=== PATIENT | female | born 1975 | race Caucasian/White ===

== ENCOUNTER 2016-07-08 17:22 | Emergency (ER) | payer OTHER, MEDICAID ==
[~2016-07-08] VITALS: Ht 172.7 cm; Wt 86.0 kg
[~2016-07-08 17:22] MED LIST: ADDE20XR PO; ATEN-100 PO; DILA2TAB2; PYRI200T4 PO; STOO100C PO
[2016-07-08 17:24] VITALS: BP 149/83; PULSE 110; RESP 16; TEMP 98.6; O2SAT 97
[2016-07-08] MEDS ORDERED: SODIUM CHLOR 0.9% 1000 ML INJ 1,000 ML IV ONE (17:40)
[2016-07-08] MEDS ORDERED: HYDROmorphone HCL PF 1 MG/ML VIAL IVS ONE (17:45)
[2016-07-08] MEDS ORDERED: KETOROLAC TROMETHAMINE 30 MG/ML (IVP) VIAL IVP ONE (17:45)
[2016-07-08] MEDS ORDERED: ONDANSETRON HCL 4 MG/2 ML VIAL IVP ONE (17:45)
[2016-07-08] MEDS ORDERED: ADDE20XR PO (17:51)
[2016-07-08 18:15] VITALS: BP 146/81; PULSE 80; RESP 17; O2SAT 98
[2016-07-08 18:34] LABS: AUTOMATED NEUTROPHIL # 7.5 TH/MM3 (1.8-7.7); BASOPHIL # 0.1 TH/MM3 (0-0.2); BASOPHIL % 0.6 % (0.0-2.0); EOSINOPHIL # 0.3 TH/MM3 (0-0.4); EOSINOPHIL % 2.9 % (0.0-4.0); HEMATOCRIT 39.8 % (35.0-46.0); HEMO FLAGS DIFF FINAL; LYMPH % 24.6 % (9.0-44.0); LYMPHOCYTE # 2.9 TH/MM3 (1.0-4.8); MEAN CELL VOLUME 83.5 FL (80.0-100.0); MEAN CORPUSCULAR HEMOGLOBIN 27.8 PG (27.0-34.0); MEAN CORPUSCULAR HGB CONC 33.3 % (32.0-36.0); NEUT % 63.9 % (16.0-70.0); PLATELET COUNT 340 TH/MM3 (150-450); RED BLOOD COUNT 4.77 MIL/MM3 (4.00-5.30); RED CELL DISTRIBUTION WIDTH 13.5 % (11.6-17.2); WHITE BLOOD COUNT 11.7 TH/MM3 (4.0-11.0)
[2016-07-08 18:36] LABS: BACTERIA, URINE RARE /hpf; BLOOD, URINE MOD (NEG); COMMENT (UR) CULTURE INDICATED; CULTURE IF INDICATED CULTURE INDICATED; GLUCOSE,URINE NEG (NEG); KETONE, URINE NEG (NEG); MUCUS URINE FEW /lpf (OCC); NITRITE,URINE NEG (NEG); SQUAMOUS EPITHELIAL CELL URINE <1 /hpf (0-5); URINE COLOR YELLOW (YELLW/STRAW)
[2016-07-08 18:55] LABS: BICARBONATE 27.8 MEQ/L (21.0-32.0); MAGNESIUM 2.1 MG/DL (1.5-2.5); POTASSIUM 4.3 MEQ/L (3.5-5.1)
--- NOTE | 2016-07-08 19:07 | RADRPT ---
EXAM DATE/TIME: 07/08/2016 18:42 [facility] COMPARISON: UROGRAM, RETROGRADE PYELO, November 20, 2014, 17:13. ABDOMEN KUB ONLY, November 20, 2014, 14:00. CT ABDOMEN & PELVIS W/O CONTRAST, August 05, 2013, 17:31. INDICATIONS : Evaluate for renal calculi. ORAL CONTRAST: No oral contrast ingested. RADIATION DOSE: 9.52 CTDIvol (mGy) MEDICAL HISTORY : Renal calculi. SURGICAL HISTORY : Cholecystectomy. Tubal ligation.Lithotripsy and left stent. ENCOUNTER: Initial ACUITY: 1 yr PAIN SCALE: 5/10 LOCATION: flank TECHNIQUE: Volumetric scanning of the abdomen and pelvis was performed. Using automated exposure control and ad justment of the mA and/or kV according to patient size, radiation dose was kept as low as reasonably achievable to obtain optimal diagnostic quality images. FINDINGS: The heart is minimally enlarged. The lung bases are clear. The liver is free of focal defects. Stef gical clips are seen in the gallbladder fossa. There is mild prominence to the spleen. The pancreas is unremarkable. The right adrenal gland appears normal. There is a small low density lesion in the left adrenal gland measuring approximately 1.6 cm. This i s probably an adenoma. Double J stent is in place on the left with a large 1.7 cm stone in the lower pole of the left kidney . There are no calcifications along the stent. The uterus is mildly prominent. The stent is coiled in the bladder. The abdominal wall is intact. There is no ascites or adenopathy. CONCLUSION: Double J stent on the left with stone in the lower pole of the kidney unchanged from the comparison pushpa saleem. Houston Noriega MD FACR on July 08, 2016 at 18:59 Board Certified Radiologist. This report was verified electronically.
[2016-07-08 19:13] VITALS: BP 141/79; PULSE 79; RESP 15; O2SAT 97
--- NOTE | 2016-07-08 19:14 | PD ---
HPI Chief Complaint: Complaint Time Seen by Provider: 19:06 Travel History International Travel<30 days: No Contact w/Intl Traveler<30days: No Traveled to known affect area: No History of Present Illness HPI 41-year-old female that presents to the ED for evaluation of pain on her left side. Per patient she relates she has a kidney stone. Per patient she has this pain for almost a year. Per patient she had a stent placed on the left side by Dr. Polanco at this facility. Per patient she's been dealing with this pain on and off but today has become more severe. Per patient she usually goes to perforation at that hospital she was told that she had about stone that she require surgery for. Apparently they cannot do that surgery at that hospital so she was told that if she ever gets this again patient is to come back here. Per patient the pain is 7 out of 10. Does not radiate. States mainly on the left side. She denies any fevers chills or sweats. No urinary issues. She has not seen her doctor and she does tell me that she follows with Dr. Polanco. No chest pain or shortness of breath. No headache. She chronically takes Advil and Tylenol with minimal relief. PFSH Past Medical History ADD: Yes Diminished Hearing: No Kidney Stones: Yes Psychiatric: Yes (ADHD ) Tetanus Vaccination: > 5 Years Influenza Vaccination: Yes ?: Unknown LMP: 07/08/16 : 4 Para: 3 Miscarriage: 1 Tubal Ligation: Yes Past Surgical History Abdominal Surgery: Yes (GALLBLADDER. LITHOTRIPS AND STENTS ) Cholecystectomy: Yes Genitourinary Surgery: Yes (LITHOTRIPSY AND STENTS) Gynecologic Surgery: Yes (TUBEL LIGATION ) Joint Replacement: No Pacemaker: No Other Surgery: Yes Social History Alcohol Use: Yes (OCCASIONAL) Tobacco Use: No Substance Use: No Allergies-Medications (Allergen,Severity, Reaction): Coded Allergies: Latex (Verified Allergy, Intermediate, HIVES, 07/08/16) Percocet (Verified Adverse Reaction, Intermediate, Nausea/Vomiting, ) Reported Meds & Prescriptions Reported Meds & Active Scripts Active Cipro (Ciprofloxacin HCl) 500 Mg Tab 500 Mg PO BID 10 Days Reported Adderall Xr 24 HR (Amphetamine/Dextroamphetamine) 20 Mg Cap 20 Mg PO DAILY Once daily in the morning. Review of Systems Except as stated in HPI: all other systems reviewed are Neg Physical Exam Narrative GENERAL: SKIN: Warm and dry. HEAD: Atraumatic. Normocephalic. EYES: Pupils equal and round. No scleral icterus. No injection or drainage. ENT: No nasal bleeding or discharge. Mucous membranes pink and moist. NECK: Trachea midline. No JVD. CARDIOVASCULAR: Regular rate and rhythm. RESPIRATORY: No accessory muscle use. Clear to auscultation. Breath sounds equal bilaterally. GASTROINTESTINAL: Abdomen soft, non-tender, nondistended. Hepatic and splenic margins not palpable. MUSCULOSKELETAL: Extremities without clubbing, cyanosis, or edema. No obvious deformities. Patient has left-sided CVA tenderness. Very sensitive to touch. NEUROLOGICAL: Awake and alert. No obvious cranial nerve deficits. Motor grossly within normal limits. Five out of 5 muscle strength in the arms and legs. Normal speech. PSYCHIATRIC: Appropriate mood and affect; insight and judgment normal. Data Data Last Documented VS Vital Signs Date Time Temp Pulse Resp B/P Pulse Ox O2 Delivery O2 Flow Rate FiO2 07/08/16 19:13 79 15 141/79 97 Room Air 07/08/16 17:24 98.6 Orders Complete Blood Count With Diff (07/08/16 17:35) Basic Metabolic Panel (Bmp) (07/08/16 17:35) Urinalysis - C+S If Indicated (07/08/16 17:35) Magnesium (Mg) (07/08/16 17:35) Iv Access Insert/Monitor (07/08/16 17:35) Ed Urine Pregnancytest Poc (07/08/16 17:35) Ct Abd/Pel W/O Iv Contrast (07/08/16 17:37) Ecg Monitoring (07/08/16 17:40) Ketorolac Inj (Toradol Inj) (07/08/16 17:45) Ondansetron Inj (Zofran Inj) (07/08/16 17:45) Sodium Chlor 0.9% 1000 Ml Inj (Ns 1000 M (07/08/16 17:40) Hydromorphone Pf Inj (Dilaudid Pf Inj) (07/08/16 17:45) Urine Culture (07/08/16 18:00) Ciprofloxacin 400 Mg Premix (Cipro 400 M (07/08/16 19:15) Labs Laboratory Tests Test 07/08/16 18:00 White Blood Count 11.7 TH/MM3 Red Blood Count 4.77 MIL/MM3 Hemoglobin 13.3 GM/DL Hematocrit 39.8 % Mean Corpuscular Volume 83.5 FL Mean Corpuscular Hemoglobin 27.8 PG Mean Corpuscular Hemoglobin 33.3 % Concent Red Cell Distribution Width 13.5 % Platelet Count 340 TH/MM3 Mean Platelet Volume 9.4 FL Neutrophils (%) (Auto) 63.9 % Lymphocytes (%) (Auto) 24.6 % Monocytes (%) (Auto) 8.0 % Eosinophils (%) (Auto) 2.9 % Basophils (%) (Auto) 0.6 % Neutrophils # (Auto) 7.5 TH/MM3 Lymphocytes # (Auto) 2.9 TH/MM3 Monocytes # (Auto) 0.9 TH/MM3 Eosinophils # (Auto) 0.3 TH/MM3 Basophils # (Auto) 0.1 TH/MM3 CBC Comment DIFF FINAL Differential Comment Urine Color YELLOW Urine Turbidity HAZY Urine pH 6.0 Urine Specific [place] 1.024 Urine Protein 100 mg/dL Urine Glucose (UA) NEG mg/dL Urine Ketones NEG mg/dL Urine Occult Blood MOD Urine Nitrite NEG Urine Bilirubin NEG Urine Urobilinogen LESS THAN 2.0 MG/DL Urine Leukocyte Esterase MOD Urine RBC /hpf Urine WBC 68 /hpf Urine Squamous Epithelial <1 /hpf Cells Urine Bacteria RARE /hpf Urine Mucus FEW /lpf Microscopic Urinalysis Comment CULTURE INDICATED Sodium Level 140 MEQ/L Potassium Level 4.3 MEQ/L Chloride Level 105 MEQ/L Carbon Dioxide Level 27.8 MEQ/L Anion Gap 7 MEQ/L Blood Urea Nitrogen 22 MG/DL Creatinine 0.86 MG/DL Estimat Glomerular Filtration 73 ML/MIN Rate Random Glucose 88 MG/DL Calcium Level 9.3 MG/DL Magnesium Level 2.1 MG/DL MDM Medical Decision Making Medical Screen Exam Complete: Yes Emergency Medical Condition: Yes Medical Record Reviewed: Yes Interpretation(s) CBC & BMP Diagram 07/08/16 18:00 CT of the abdomen and pelvis showed 1.7 centimeter kidney stone on the left kidney with no obstruction. Patient does have a just in the left ureter. Urine shows signs of UTI. Differential Diagnosis Pyelonephritis versus kidney stone versus chronic pain versus acute on chronic pain Narrative Course 41-year-old female that presents to the ED for evaluation of possible kidney stone. Patient was properly examined and was found to have signs and symptoms consistent appears to be likely kidney stone versus pyonephritis. Labs and imaging ordered. Patient was given pain medication. Labs and imaging showed UTI as well as kidney stone but no sign of ureteral stone. Staying still in place. No sign of hydronephrosis. Case was discussed in my attending Dr. Kauffman who recommends antibiotics and follow-up outpatient. I spoke with Dr. Escobar as the patient is very aminent that she needs the J-tube removed that has been there too long and she is having severe pain because of it. He recommends that patient be discharged and follow with him on the office tomorrow for removal of the stent. Patient was given a prescription for Cipro. Told to follow with PCP. See ED worsening symptoms. Diagnosis Primary Impression: Renal colic on left side Additional Impression: Cystitis Referrals: Gold Escobar MD Patient Instructions: General Instructions, Narcotic given in the ED Additional Instructions: Follow-up with Dr. Escobar tomorrow and he will remove the stent for you. Take meds as prescribed. F/u with urologist. See ED if worsening symptoms. Med/Other Pt SpecificInfo: Prescription(s) given Scripts Ciprofloxacin (Cipro)500 Mg [id number] Mg PO BID 10 Days Prov:Marisela Kauffman MD 07/08/16 Disposition: 01 DISCHARGE HOME Condition: Stable Garland Seay Jul 08, 2016 19:10
[2016-07-08] MEDS ORDERED: CIPROFLOXACIN 400 MG PREMIX 200 ML IV ONE (19:15)
[2016-07-08] MEDS ORDERED: CIPR-9 PO (19:25)
[2016-07-08 20:16] VITALS: BP 140/80
== END 2016-07-08 20:42 | disposition home or self-care (01) ==
LOC: NEPE 17:22
DX: N23 Unspecified renal colic (principal); N30.90 Cystitis, unspecified without hematuria
CPT/HCPCS: 74176; 80048; 81001; 83735; 84703; 85025; 87086; 96361; 96365; 96375; 99284; J0744; J1170; J1885; J2405; J7030

== ENCOUNTER 2016-07-09 14:48 | Observation (INO) | payer OTHER, MEDICAID ==
[~2016-07-09] VITALS: Ht 172.7 cm; Wt 88.0 kg
[~2016-07-09 14:48] MED LIST changes: -ATEN-100 PO; +CIPR-9 PO; -DILA2TAB2; -PYRI200T4 PO; -STOO100C PO
[2016-07-09 14:50] VITALS: BP 178/100; PULSE 100; RESP 12; TEMP 98.6; O2SAT 98
[2016-07-09 15:05] VITALS: BP 168/89; PULSE 85; RESP 20; O2SAT 98
--- NOTE | 2016-07-09 15:29 | PD ---
HPI Chief Complaint: Flank/Kidney Pain Time Seen by Provider: 15:27 Travel History International Travel<30 days: No Contact w/Intl Traveler<30days: No Traveled to known affect area: No History of Present Illness HPI Patient comes in complaining of continued left flank pain and abdominal pain after being seen here yesterday diagnosed with renal colic and cystitis. Patient did not get the antibiotic prescription filled as she feels that she had a reaction to the IV dose that was given emergency department. Patient states feels it actually got worse and she is having vomiting along with the left back pain. Patient continues to have dysuria but denies any vaginal discharge. She tried taking [id number] medication with minimal to no relief of symptoms. Denies any fevers or other new symptoms. PFSH Past Medical History ADD: Yes ADHD: Yes Diminished Hearing: No Kidney Stones: Yes Psychiatric: Yes (ADHD ) Tetanus Vaccination: > 5 Years Influenza Vaccination: No ?: Not LMP: 07/04/2016 : 4 Para: 3 Miscarriage: 1 : 0 Tubal Ligation: Yes Past Surgical History Abdominal Surgery: Yes (GALLBLADDER. LITHOTRIPS AND STENTS ) Cholecystectomy: Yes Genitourinary Surgery: Yes (LITHOTRIPSY AND STENTS) Gynecologic Surgery: Yes (TUBEL LIGATION ) Joint Replacement: No Pacemaker: No Other Surgery: Yes Social History Alcohol Use: Yes (OCCASIONAL) Tobacco Use: No Substance Use: No Allergies-Medications (Allergen,Severity, Reaction): Coded Allergies: Latex (Verified Allergy, Intermediate, HIVES, 07/08/16) Percocet (Verified Adverse Reaction, Intermediate, Nausea/Vomiting, ) Reported Meds & Prescriptions Reported Meds & Active Scripts Active Reported Adderall Xr 24 HR (Amphetamine/Dextroamphetamine) 20 Mg Cap 20 Mg PO DAILY Once daily in the morning. Review of Systems Except as stated in HPI: all other systems reviewed are Neg Physical Exam Narrative GENERAL: Well-developed, overly nourished, in no acute distress, and non-ill appearing. SKIN: Warm and dry. HEAD: Atraumatic. Normocephalic. EYES: Pupils equal and round. EOMI. No scleral icterus. No injection or drainage. ENT: No nasal bleeding or discharge. Mucous membranes pink and moist. NECK: Trachea midline. Supple. No nuclear rigidity. CARDIOVASCULAR: Regular rate and rhythm. No murmur appreciated. RESPIRATORY: No accessory muscle use. No respiratory distress. Clear to auscultation. Breath sounds equal bilaterally. GASTROINTESTINAL: Abdomen soft, non-tender, nondistended. Hepatic and splenic margins not palpable. Normal bowel sounds 4. No pulsatile mass. MUSCULOSKELETAL: No obvious deformities. No clubbing. No cyanosis. No edema. Full range of motion. NEUROLOGICAL: Awake and alert. No obvious cranial nerve deficits. Motor grossly within normal limits. Normal speech. PSYCHIATRIC: Appropriate mood and affect; insight and judgment normal. Data Data Last Documented VS Vital Signs Date Time Temp Pulse Resp B/P Pulse Ox O2 Delivery O2 Flow Rate FiO2 07/09/16 16:19 20 07/09/16 15:05 85 168/89 98 07/09/16 14:50 98.6 Room Air Orders Ondansetron Inj (Zofran Inj) (07/09/16 15:30) Ceftriaxone Inj (Rocephin Inj) (07/09/16 15:30) Hydromorphone Pf Inj (Dilaudid Pf Inj) (07/09/16 15:30) Phenazopyridine (Pyridium) (07/09/16 15:30) Iv Access Insert/Monitor (07/09/16 17:09) Complete Blood Count With Diff (07/09/16 17:09) Basic Metabolic Panel (Bmp) (07/09/16 17:09) Place In Observation (07/09/16 ) Code Status (07/09/16 17:33) Vital Signs (Adult) Q4H (07/09/16 17:33) Activity Oob With Assistance (07/09/16 17:33) Diet Regular Basic (07/09/16 Dinner) Sodium Chloride 0.9% Flush (Ns Flush) (07/09/16 17:45) Sodium Chloride 0.9% Flush (Ns Flush) (07/09/16 21:00) Acetaminophen (Tylenol) (07/09/16 17:45) Ondansetron Inj (Zofran Inj) (07/09/16 17:45) Magnesium Hydroxide Liq (Milk Of Magnesi (07/09/16 17:45) Chest, Single Ap (07/09/16 17:33) Electrocardiogram (07/09/16 17:33) Scd Bilateral/Knee High CHECO.BID (07/09/16 17:33) Naloxone Inj (Narcan Inj) (07/09/16 17:45) Beta Hcg (Quant/Titer) (07/09/16 17:33) Ketorolac Inj (Toradol Inj) (07/09/16 18:00) Acetamin-Hydrocod 325-5 Mg ([place] 5-325 (07/09/16 17:45) Hydromorphone Pf Inj (Dilaudid Pf Inj) (07/09/16 17:45) Consult Urology (07/09/16 ) 1/2 Ns + Kcl 20 Meq Inj (1/2 Ns + Kcl 20 (07/09/16 17:45) Admit Order (Ed Use Only) (07/09/16 17:40) MDM Medical Decision Making Medical Screen Exam Complete: Yes Emergency Medical Condition: Yes Differential Diagnosis UTI, renal colic, pain, other Narrative Course Patient was seen and examined. Previous laboratories and imaging that was done yesterday was reviewed. Discussed patient with Dr. Webber who saw and evaluated the patient. After evaluating the patient, Dr. Webber spoke with urologist on- call. Please see his documentation for further detail. Patient is wanting to stay for additional pain control versus outpatient medication. Discussed this with Dr. Webber, who is agreeable to this. Physician Communication Physician Communication [id number] Delacruz who is agreeable to admit the patient. Diagnosis Primary Impression: Intractable pain Additional Impression: Renal colic on left side Deejay Richey Jul 09, 2016 15:29
[2016-07-09] MEDS ORDERED: cefTRIAXone INJ 1,000 MG in SODIUM CHLORIDE 0.9% INJ 100 ML IV ONE (15:30)
[2016-07-09] MEDS ORDERED: HYDROmorphone HCL PF 1 MG/ML VIAL IV PUSH ONE (15:30)
[2016-07-09] MEDS ORDERED: ONDANSETRON HCL 4 MG/2 ML VIAL IV PUSH ONE (15:30)
[2016-07-09] MEDS ORDERED: PHENAZOPYRIDINE HCL 200 MG TAB PO ONE (15:30)
[2016-07-09] MEDS ORDERED: ACETAMINOPHEN 325 MG TAB PO PRN (17:45)
[2016-07-09] MEDS ORDERED: MAGNESIUM HYDROXIDE SUSP 30 ML CUP PO PRN (17:45)
[2016-07-09] MEDS ORDERED: ACETAMINOPHEN/HYDROcodone 325 MG/5 MG TAB PO PRN (17:45)
[2016-07-09] MEDS ORDERED: SODIUM CHLORIDE 0.9% FLUSH 5 ML FLUSH FLUSH PRN (17:45)
[2016-07-09] MEDS ORDERED: NALOXONE HCL 0.4 MG/ML AMP IV PRN (17:45)
[2016-07-09 17:47] VITALS: BP 141/68; PULSE 93; RESP 16; O2SAT 95
--- NOTE | 2016-07-09 17:51 | RADRPT ---
EXAM DATE/TIME: 07/09/2016 17:48 [facility] COMPARISON: No previous studies available for comparison. INDICATIONS : Short of breath. MEDICAL HISTORY : None. SURGICAL HISTORY : None. ENCOUNTER: Initial ACUITY: 3 days PAIN SCORE: 0/10 LOCATION: Bilateral chest FINDINGS: Minimal bibasilar parenchymal changes are evident. There is no consolidation, pleural effusion or pn eumothorax. There is mild compensated cardiomegaly. CONCLUSION: Mild compensated cardiomegaly with minimal bibasilar clinical changes. Houston Noriega MD FACR on July 09, 2016 at 17:49 Board Certified Radiologist. This report was verified electronically.
[2016-07-09 18:04] LABS: AUTOMATED NEUTROPHIL # 6.3 TH/MM3 (1.8-7.7); BASOPHIL % 0.3 % (0.0-2.0); EOSINOPHIL # 0.2 TH/MM3 (0-0.4); EOSINOPHIL % 1.6 % (0.0-4.0); HEMO FLAGS DIFF FINAL; LYMPH % 28.4 % (9.0-44.0); LYMPHOCYTE # 2.8 TH/MM3 (1.0-4.8); MEAN CELL VOLUME 83.5 FL (80.0-100.0); MEAN CORPUSCULAR HEMOGLOBIN 27.9 PG (27.0-34.0); MEAN CORPUSCULAR HGB CONC 33.4 % (32.0-36.0); MONO % 5.5 % (0.0-8.0); NEUT % 64.2 % (16.0-70.0); PLATELET COUNT 311 TH/MM3 (150-450); RED BLOOD COUNT 4.67 MIL/MM3 (4.00-5.30); RED CELL DISTRIBUTION WIDTH 13.6 % (11.6-17.2); WHITE BLOOD COUNT 9.8 TH/MM3 (4.0-11.0)
[2016-07-09] MEDS: KETOROLAC TROMETHAMINE 30 MG/ML (IVP) VIAL IV PUSH SCH (18:24)
[2016-07-09] MEDS: ONDANSETRON HCL 4 MG/2 ML VIAL IVP PRN (18:25)
--- NOTE | 2016-07-09 18:25 | PD ---
Data Data Last Documented VS Vital Signs Date Time Temp Pulse Resp B/P Pulse Ox O2 Delivery O2 Flow Rate FiO2 07/09/16 16:19 20 07/09/16 15:05 85 168/89 98 07/09/16 14:50 98.6 Room Air Orders Ondansetron Inj (Zofran Inj) (07/09/16 15:30) Ceftriaxone Inj (Rocephin Inj) (07/09/16 15:30) Hydromorphone Pf Inj (Dilaudid Pf Inj) (07/09/16 15:30) Phenazopyridine (Pyridium) (07/09/16 15:30) Iv Access Insert/Monitor (07/09/16 17:09) Complete Blood Count With Diff (07/09/16 17:09) Basic Metabolic Panel (Bmp) (07/09/16 17:09) Place In Observation (07/09/16 ) Code Status (07/09/16 17:33) Vital Signs (Adult) Q4H (07/09/16 17:33) Activity Oob With Assistance (07/09/16 17:33) Diet Regular Basic (07/09/16 Dinner) Sodium Chloride 0.9% Flush (Ns Flush) (07/09/16 17:45) Sodium Chloride 0.9% Flush (Ns Flush) (07/09/16 21:00) Acetaminophen (Tylenol) (07/09/16 17:45) Ondansetron Inj (Zofran Inj) (07/09/16 17:45) Magnesium Hydroxide Liq (Milk Of Magnesi (07/09/16 17:45) Chest, Single Ap (07/09/16 17:33) Electrocardiogram (07/09/16 17:33) Scd Bilateral/Knee High CHECO.BID (07/09/16 17:33) Naloxone Inj (Narcan Inj) (07/09/16 17:45) Acetamin-Hydrocod 325-5 Mg ([place] 5-325 (07/09/16 17:45) Hydromorphone Pf Inj (Dilaudid Pf Inj) (07/09/16 17:45) Consult Urology (07/09/16 ) 1/2 Ns + Kcl 20 Meq Inj (1/2 Ns + Kcl 20 (07/09/16 17:45) Admit Order (Ed Use Only) (07/09/16 17:40) Ketorolac Inj (Toradol Inj) (07/09/16 18:30) Beta Hcg (Quant/Titer) (07/09/16 17:35) Labs Laboratory Tests Test 07/09/16 17:35 White Blood Count 9.8 TH/MM3 Red Blood Count 4.67 MIL/MM3 Hemoglobin 13.0 GM/DL Hematocrit 39.0 % Mean Corpuscular Volume 83.5 FL Mean Corpuscular Hemoglobin 27.9 PG Mean Corpuscular Hemoglobin 33.4 % Concent Red Cell Distribution Width 13.6 % Platelet Count 311 TH/MM3 Mean Platelet Volume 9.7 FL Neutrophils (%) (Auto) 64.2 % Lymphocytes (%) (Auto) 28.4 % Monocytes (%) (Auto) 5.5 % Eosinophils (%) (Auto) 1.6 % Basophils (%) (Auto) 0.3 % Neutrophils # (Auto) 6.3 TH/MM3 Lymphocytes # (Auto) 2.8 TH/MM3 Monocytes # (Auto) 0.5 TH/MM3 Eosinophils # (Auto) 0.2 TH/MM3 Basophils # (Auto) 0.0 TH/MM3 CBC Comment DIFF FINAL Differential Comment MDM Supervised Visit with ANNA: Yes Narrative Course The history, exam, and medical decision-making in the associated mid-level provider note were completed with my assistance. I reviewed and agree with the findings presented. I attest that I had a [id number] encounter with the patient on the same day, and personally performed and documented my assessment and findings in the medical record. *My assessment and Findings: 41-year-old with a large left renal lithiasis in the renal pelvis, status post stent back in October, apparently of some revision of the stent in January, is been having insurance problems has not followed up. Comes in yesterday with worsening pain. CT imaging and labs unremarkable. Came back today with worsening severe pain, uncontrolled pain medications here. I spoke with Dr. Allen, he would recommend extra shock wave lithotripsy. She states that Dr. Polanco appreciable recommended percutaneous lithotripsy. We cannot do external shockwave lithotripsy this week. She was recommended for outpatient follow-up if her pain could be managed. Wear unable to manage her pain in the emergency Department social be admitted for pain control, with the understanding that there will not likely be any urological intervention during this hospitalization. Diagnosis Primary Impression: Intractable pain Additional Impression: Renal colic on left side Keenan Webber MD Jul 09, 2016 18:25
[2016-07-09 18:26] LABS: ANION GAP 11 MEQ/L (5-15); BICARBONATE 26.1 MEQ/L (21.0-32.0); BLOOD UREA NITROGEN 14 MG/DL (7-18); CHLORIDE 103 MEQ/L (98-107); GLOMERULAR FILTRATION RATE 78 ML/MIN (>89); POTASSIUM 3.5 MEQ/L (3.5-5.1); SODIUM (NA) 140 MEQ/L (136-145)
[2016-07-09 18:40] LABS: BETA HCG QUANT LESS THAN 1 MIU/ML (0-5)
[2016-07-09] MEDS: 1/2 NS + KCL 20 MEQ INJ 1,000 ML IV SCH (18:53)
--- NOTE | 2016-07-09 19:42 | HHI.HP ---
HPI Service CP Hospitalists Primary Care Physician No Primary Care Physician Admission Diagnosis intractable pain, renal colic Chief Complaint: Abdominal pain Travel History International Travel<30 Days: No Contact w/Intl Traveler <30 Da: No Traveled to Known Affected Are: No History of Present Illness Ms. Allen is a pleasant 41 y/o WF with nephrolithiasis who presented to the ED at [facility] [place] on 07/08/16 and 07/09/16 with complaints of left flank pain and abdominal pain that has been going on intermittently for over a year. Pt had previously had a cystoscopy and left ureteral stent placed in 10/2014. In the ED yesterday she had a CT abd/pelvis which noted a 1.7 cm kidney stone in the lower pole of the left kidney with no obstruction and the double J stent in place. UA was abnormal. The PA in the ED that saw her on 07/[address] Escobar per his note was instructed to followup in the office with Dr. Escobar today. She was given a prescription for Cipro at discharge. She returned to the ER today with worsening pain and vomiting today. She was unable to get the antibiotic prescription filled and she feels that she may have had a reaction to the IV dose that was given ED. Patient continues to have dysuria but denies any vaginal discharge. Denies any fevers or other new symptoms. Pt was given a dose of ceftriaxone in the ER. Her WBC count at admission was 9.8. Urine culture from 07/08 is pending. Review of Systems Constitutional: DENIES: Fever, Chills Respiratory: DENIES: Shortness of breath Cardiovascular: DENIES: Chest pain Gastrointestinal: COMPLAINS OF: Abdominal pain, Vomiting Genitourinary: COMPLAINS OF: Urgency, Dysuria Musculoskeletal: COMPLAINS OF: Back pain Integumentary: DENIES: Rash Past Family Social History Past Medical History Nephrolithiasis ADD Past Surgical History Cystoscopy with urinary stent placement in the left kidney and ureter on with Dr. Stevens Shock-wave lithotripsy on 08/26/2013 Cholecystectomy Reported Medications Adderall Xr 24 HR (Amphetamine/Dextroamphetamine) 20 Mg Cap 20 Mg PO DAILY Once daily in the morning. Allergies: Coded Allergies: Latex (Verified Allergy, Intermediate, HIVES, 07/08/16) Percocet (Verified Adverse Reaction, Intermediate, Nausea/Vomiting, ) Family History Noncontributory Social History Occasional social alcohol use Denies any tobacco or illicit drug use Physical Exam Vital Signs Vital Signs Date Time Temp Pulse Resp B/P Pulse Ox O2 Delivery O2 Flow Rate FiO2 07/09/16 17:47 93 16 141/68 95 Room Air 07/09/16 16:19 20 07/09/16 15:05 85 20 168/89 98 07/09/16 14:50 98.6 100 12 178/100 98 Room Air Physical Exam GENERAL: This is a well-nourished, well-developed patient, in no apparent distress. HEENT: Atraumatic. Normocephalic. No temporal or scalp tenderness. No scleral icterus. Airway patent. NECK: Trachea midline, supple, nontender. CARDIO: Regular. RESP: CTA bilaterally. No wheezes, rales, or rhonchi. ABD: +BS, soft, non-tender, nondistended. EXT: Extremities without clubbing, cyanosis, or edema. NEURO: Awake and alert. Motor and sensory grossly within normal limits. Normal speech. Laboratory Laboratory Tests Test 07/09/16 17:35 White Blood Count 9.8 Red Blood Count 4.67 Hemoglobin 13.0 Hematocrit 39.0 Mean Corpuscular Volume 83.5 Mean Corpuscular Hemoglobin 27.9 Mean Corpuscular Hemoglobin 33.4 Concent Red Cell Distribution Width 13.6 Platelet Count 311 Mean Platelet Volume 9.7 Neutrophils (%) (Auto) 64.2 Lymphocytes (%) (Auto) 28.4 Monocytes (%) (Auto) 5.5 Eosinophils (%) (Auto) 1.6 Basophils (%) (Auto) 0.3 Neutrophils # (Auto) 6.3 Lymphocytes # (Auto) 2.8 Monocytes # (Auto) 0.5 Eosinophils # (Auto) 0.2 Basophils # (Auto) 0.0 CBC Comment DIFF FINAL Differential Comment Sodium Level 140 Potassium Level 3.5 Chloride Level 103 Carbon Dioxide Level 26.1 Anion Gap 11 Blood Urea Nitrogen 14 Creatinine 0.82 Estimat Glomerular Filtration 78 Rate Random Glucose 82 Calcium Level 9.1 Human Chorionic Gonadotropin, LESS THAN 1 Quant Result Diagram: 07/09/16 1735 07/09/16 173 Imaging Last Impressions Chest X-Ray 07/09/161732 Signed Impressions: Service Date/Time: Saturday, July 09, 2016 17:48 - CONCLUSION: Mild compensated cardiomegaly with minimal bibasilar clinical changes. Houston Noriega MD FACR Septic Shock Reassessment Heart: Regular rate and rhythm Lungs: Clear Skin: Warm Peripheral Pulses: Bounding Right Radial Bounding Left Radial Bounding Right Popliteal Bounding Left Popliteal Bounding Right Dorsalis Pedis Bounding Left Dorsalis Pedis Bounding Right Posterior Tibial Bounding Left Posterior Tibial Capillary Refill: <2 seconds Assessment and Plan Problem List: (1) Intractable pain Status: Acute Plan: - Pt admitted with intractable flank pain and vomiting. The pain has been worsening for the last few days. - Pt has hx of nephrolithiasis and previously underwent cystoscopy with urinary stent placement in the left kidney and ureter on 11/20/[address] Stevens - Pt still has that stent in place. - CT Abd/pelvis (07/08/15) with noted double J stent on the left with stone in the lower pole of the kidney unchanged from the comparison study - Urine culture from 07/08 is pending. - Pt was given a dose of Ceftriaxone in the ER - Urology has been consulted - Pain control PRN - Supportive care - DVT prophylaxis with SCDs (2) Renal colic on left side Status: Acute Plan: - See above. (3) Nephrolithiasis Status: Acute Plan: - See above. Assessment and Plan Patient examined. Assessment and plan formulated with Anna Durant PA-C. I agree with the above. Anna Durant Jul 09, 2016 19:42 Chris Delacruz DO Jul 12, 2016 06:34
[2016-07-09] MEDS: SODIUM CHLORIDE 0.9% FLUSH 5 ML FLUSH FLUSH SCH (20:50)
[2016-07-09 21:27] VITALS: BP 132/77; PULSE 80; RESP 18; TEMP 98.8; O2SAT 98
[2016-07-09 23:28] VITALS: BP 137/75; PULSE 71; RESP 21; TEMP 98.7; O2SAT 99
[2016-07-10] VITALS (9 sets, daily range): BP systolic 119–155; BP diastolic 60–96; PULSE 71–86; RESP 16–18; TEMP 97.8–98.6; O2SAT 93–97
[2016-07-10] MEDS: KETOROLAC TROMETHAMINE 30 MG/ML (IVP) VIAL IV PUSH SCH ×4 (00:44→18:00)
[2016-07-10] MEDS: HYDROmorphone HCL PF 1 MG/ML VIAL IV PUSH PRN ×4 (01:35→22:01)
[2016-07-10] MEDS: 1/2 NS + KCL 20 MEQ INJ 1,000 ML IV SCH ×4 (01:39→20:25)
[2016-07-10 07:31] LABS: BASOPHIL # 0.1 TH/MM3 (0-0.2); BASOPHIL % 0.5 % (0.0-2.0); EOSINOPHIL # 0.2 TH/MM3 (0-0.4); EOSINOPHIL % 1.6 % (0.0-4.0); HEMATOCRIT 35.8 % (35.0-46.0); HEMO FLAGS DIFF FINAL; LYMPH % 14.6 % (9.0-44.0); LYMPHOCYTE # 1.5 TH/MM3 (1.0-4.8); MEAN CELL VOLUME 83.6 FL (80.0-100.0); MEAN CORPUSCULAR HEMOGLOBIN 27.9 PG (27.0-34.0); MEAN CORPUSCULAR HGB CONC 33.4 % (32.0-36.0); MONO % 4.3 % (0.0-8.0); PLATELET COUNT 250 TH/MM3 (150-450); RED BLOOD COUNT 4.29 MIL/MM3 (4.00-5.30); RED CELL DISTRIBUTION WIDTH 13.8 % (11.6-17.2); WHITE BLOOD COUNT 10.1 TH/MM3 (4.0-11.0)
[2016-07-10 07:35] LABS: BICARBONATE 27.5 MEQ/L (21.0-32.0); POTASSIUM 3.8 MEQ/L (3.5-5.1)
[2016-07-10] MEDS: SODIUM CHLORIDE 0.9% FLUSH 5 ML FLUSH FLUSH SCH ×2 (09:00→20:58)
[2016-07-10] MEDS ORDERED: VANCOMYCIN INJ 1,000 MG in SODIUM CHLOR 0.9% 250 ML INJ 250 ML IV SCH (10:00)
[2016-07-10] MEDS ORDERED: ceFAZolin 2 GM PREMIX 50 ML IV SCH (10:00)
--- NOTE | 2016-07-10 10:05 | EKG ---
Date Performed: 07/09/2016 Time Performed: 17:57:43 PTAGE: 41 years EKG: Sinus rhythm NORMAL ECG NO PREVIOUS TRACING DOCTOR: Juan Penaloza Interpretating Date/Time 07/10/2016 10:03:11
[2016-07-10 12:14] LABS: INTERNATIONAL NORMALIZED RATIO 0.9 RATIO; PROTHROMBIN TIME - PATIENT 10.3 SEC (9.8-11.6)
--- NOTE | 2016-07-10 12:19 | MB ---
cc: NARCISO STARK DATE OF CONSULTATION: 07/10/2016 HISTORY OF PRESENT ILLNESS Ms. Allen is a 41-year-old female with history of a 1.7 cm left lower pole stone. She had a stent placed back in [place] [address] Stevens and was lost to follow-up due to the fact that she did not have insurance. She presents now with worsening left-sided flank pain in the last 4 days. She denies any fever or chills, denies any nausea or vomiting. She states she has had this stone in the past and she underwent extracorporeal shock wave lithotripsy back in 2013 and did not completely remove the entire stone. She states over time it has gotten larger. CT scan performed in the emergency room demonstrates a left double-J stent in place with a large 1.7 cm stone in the lower pole left kidney. No hydronephrosis is noted. ALLERGIES 1. PERCOCET. 2. LATEX. PAST MEDICAL HISTORY 1. Kidney stones. 2. Attention deficit disorder. PAST SURGICAL HISTORY 1. Cystoscopy with left double-J stent. 2. Extracorporeal shock wave lithotripsy in 2013. 3. Cholecystectomy. FAMILY HISTORY Denies history of stones. SOCIAL HISTORY Notes occasional alcohol usage, but denies any tobacco or illicit drug usage. PHYSICAL EXAMINATION VITAL SIGNS: Temperature 97.8, heart rate 75, respiratory rate 18, blood pressure 124/60. GENERAL: A well-developed, well-nourished 41-year-old female in no acute distress. HEENT: Normocephalic, atraumatic. Pupils equal, round and react to light. Extraocular movements intact. NECK: Supple. HEART: Regular rate and rhythm. LUNGS: Clear. ABDOMEN: Soft, nontender, nondistended. There is left CVA tenderness noted. EXTREMITIES: No cyanosis, clubbing or edema. LABORATORY DATA White count 10.1, hemoglobin 12.0, hematocrit 35.8, platelet count 250. Sodium 141, potassium 3.8, chloride 106, CO2 27.5, BUN 16, creatinine 0.8, glucose 90. IMAGING DATA CT scan again shows no hydronephrosis with a left lower pole 1.7 cm stone with an indwelling left ureteral stent. ASSESSMENT A 41-year-old female with a 1.7 left lower pole stone with an indwelling ureteral stent with left-sided flank pain. PLAN/RECOMMENDATIONS After a long discussion with the patient at the bedside she does not want to undergo a left extracorporeal shock wave lithotripsy due to the fact that it did not completely eradicate her stone burden back in 2013. This will require a left percutaneous nephrostomy tube placement followed by a left percutaneous nephrolithotomy. The left percutaneous nephrostomy tube could be placed by interventional radiology today with a nephroureteral stent and the patient can follow-up and be scheduled for a left percutaneous nephrolithotomy to remove the lower pole burden. This is more invasive and this was presented to the patient and she wanted to proceed with this form of treatment. Plan will be placement of a nephroureteral stent today by interventional radiology and then she can be discharged and follow-up for scheduling of a left percutaneous nephrolithotomy. Narciso ROD/BT /8:40 AM /12:04 PM
--- NOTE | 2016-07-10 12:38 | HHI.PR ---
Subjective Remarks pain is adequately controlled Objective Vitals Vital Signs Date Time Temp Pulse Resp B/P Pulse Ox O2 Delivery O2 Flow Rate FiO2 07/10/16 08:06 97.8 75 18 124/60 97 07/10/16 05:22 98.0 78 18 135/67 97 07/10/16 02:05 18 07/10/16 02:05 18 07/09/16 23:28 98.7 71 21 137/75 99 07/09/16 22:27 18 07/09/16 21:27 98.8 80 18 132/77 98 07/09/16 17:47 93 16 141/68 95 Room Air 07/09/16 16:19 20 07/09/16 15:05 85 20 168/89 98 07/09/16 14:50 98.6 100 12 178/100 98 Room Air 07/09/16 07/09/16 07/10/16 15:00 23:00 07:00 Intake Total 480 ml Balance 480 ml Intake Oral 480 ml # Voids 1 Result Diagram: 07/10/16 0636 07/10/16 0636 Imaging Last Impressions Chest X-Ray 07/09/16 1733 Signed Impressions: Service Date/Time: Saturday, July 09, 2016 17:48 - CONCLUSION: Mild compensated cardiomegaly with minimal bibasilar clinical changes. Houston Noriega MD FACR Objective Remarks GENERAL: This is a well-nourished, well-developed patient, in no apparent distress. CARDIOVASCULAR: Regular rate and rhythm without murmurs, gallops, or rubs. RESPIRATORY: Clear to auscultation. Breath sounds equal bilaterally. No wheezes , rales, or rhonchi. GASTROINTESTINAL: Abdomen soft, non-tender, nondistended. Normal active bowel sounds MUSCULOSKELETAL: Extremities without clubbing, cyanosis, or edema. NEURO: Alert & Oriented x4 to person, place, time, situation. Moves all ext x4 A/P Problem List: (1) Calculus of proximal left ureter Status: Chronic Plan: - comgmt with Urology, Dr. Allen - pt with 1.7 left lower pole stone with and indwelling ureteral stent & left sided flank pain - Pt to undergo left percutaneous nephrostomy tube placement with nephroureteral stent by IR - Pt will then f/u with Dr. Allen outpt for left percutaneous nephrolithotomy (2) Intractable pain Status: Acute Plan: - Pt admitted with intractable flank pain and vomiting. The pain has been worsening for the last few days. - Pt has hx of nephrolithiasis and previously underwent cystoscopy with urinary stent placement in the left kidney and ureter on 11/20/[address] Stevens - Pt still has that stent in place. - CT Abd/pelvis (07/08/15) with noted double J stent on the left with stone in the lower pole of the kidney unchanged from the comparison study - Urine culture from 07/08 is pending. - Pt was given a dose of Ceftriaxone in the ER - see above (3) Renal colic on left side Status: Acute Plan: - See above. (4) Nephrolithiasis Status: Acute Plan: - See above. Chris Delacruz DO Jul 10, 2016 12:38
[2016-07-10] MEDS ORDERED: fentaNYL CITRATE 250 MCG/5 ML AMP ONE (16:07)
[2016-07-10] MEDS ORDERED: MIDAZOLAM HCL 5 MG/5 ML VIAL ONE (16:07)
[2016-07-10] MEDS ORDERED: LEVOFLOXACIN 500 MG PREMIX INJ 100 ML IV ONE (16:10)
[2016-07-10] MEDS ORDERED: THROMBIN (TOPICAL) 5,000 UNIT VIAL ONE (16:35)
[2016-07-10] MEDS ORDERED: IOHEXOL 350 MG/ML 50 ML BTL (for RAD DIAG) ONE (16:57)
--- NOTE | 2016-07-10 17:20 | PD.RAD ---
Post Procedure Progress Note Pre Procedure Diagnosis: (1) Nephrolithiasis (2) Obstructed ureteral stent Post Procedure Diagnosis: (1) Nephrolithiasis (2) Obstructed ureteral stent Procedure Date: Jul 10, 2016 Supervising Radiologist: Sean Gorman Proceduralist/Assist: Samira Richey, RT(R)(), Vicky Laurent RT(R)() Anesthesia: Local, Analgesia, Conscious Sedation Plan of Activity Patient to Unit: ROPU Patient Condition: Good See PACS Report for procedural detail/treatment Drainage Procedure Procedure 1 Imaging Guidance: Fluoroscopy Side: Left Procedure Type: Nephrostomy Procedure: Placement Australian: 8 Fluid Description: Bloody, Yellow Findings: Stone in mid-upper pole calyx. Accessed calyx with stone. Plan Drain for 24-48 hours then can return for possible ureteric stents removal and PCNU placement Sean Gorman MD Jul 10, 2016 17:20
[2016-07-10] MEDS: ONDANSETRON HCL 4 MG/2 ML VIAL IVP PRN (17:54)
[2016-07-11] MEDS: KETOROLAC TROMETHAMINE 30 MG/ML (IVP) VIAL IV PUSH SCH ×4 (00:40→18:07)
[2016-07-11 02:45] VITALS: BP 126/64; PULSE 77; RESP 18; TEMP 98; O2SAT 99
[2016-07-11] MEDS: 1/2 NS + KCL 20 MEQ INJ 1,000 ML IV SCH ×3 (03:05→16:25)
[2016-07-11] MEDS: ONDANSETRON HCL 4 MG/2 ML VIAL IVP PRN (03:24)
[2016-07-11] MEDS: HYDROmorphone HCL PF 1 MG/ML VIAL IV PUSH PRN ×2 (03:25→20:18)
[2016-07-11 05:00] VITALS: BP 132/88; PULSE 78; RESP 18; TEMP 98; O2SAT 98
--- NOTE | 2016-07-11 07:45 | HHI.PR ---
Subjective Remarks Pt seen and examined. Underwent left PCNT placement yesterday which she tolerated well. Objective Vital Signs Vital Signs Date Time Temp Pulse Resp B/P Pulse Ox O2 Delivery O2 Flow Rate FiO2 07/11/16 05:00 98.0 78 18 132/88 98 07/11/16 02:45 98.0 77 18 126/64 99 07/10/16 22:31 18 07/10/16 20:42 97.8 85 18 126/64 97 07/10/16 18:00 81 16 155/95 97 07/10/16 17:44 80 16 119/73 96 07/10/16 17:28 71 16 125/74 94 07/10/16 17:14 72 16 129/76 93 07/10/16 17:00 98.6 75 16 137/92 95 07/10/16 12:49 98.0 86 18 149/96 95 07/10/16 08:06 97.8 75 18 124/60 97 I/O 07/10/16 07/10/16 07/10/16 07/11/16 07/11/16 07/11/16 07:00 15:00 23:00 07:00 15:00 23:00 Output Total 200 ml 500 ml Balance -200 ml -500 ml Output Drainage Total 200 ml 500 ml Result Diagram: 07/10/1636 07/10/1636 Objective Remarks Abd:soft,nt,nd Left PCNT: urine clear Assessment and Plan Assessment and Plan Stable s/p left PCNT placement. Pt to undergo removal of JJ stent and internalize left PCNT with nephroureteral stent. PNCL to follow as outpatient. She will need to f/u in 1-2 weeks to schedule surgery. Ross Allen DO Jul 11, 2016 07:45
[2016-07-11] MEDS: SODIUM CHLORIDE 0.9% FLUSH 5 ML FLUSH FLUSH SCH ×2 (08:58→20:19)
[2016-07-11 10:43] VITALS: BP 133/70; PULSE 71; RESP 16; TEMP 98.1; O2SAT 98
--- NOTE | 2016-07-11 12:22 | HHI.PR ---
Subjective Remarks Pt painful. Objective Vitals Vital Signs Date Time Temp Pulse Resp B/P Pulse Ox O2 Delivery O2 Flow Rate FiO2 07/11/16 10:43 98.1 71 16 133/70 98 07/11/16 05:00 98.0 78 18 132/88 98 07/11/16 02:45 98.0 77 18 126/64 99 07/10/16 22:31 18 07/10/16 20:42 97.8 85 18 126/64 97 07/10/16 18:00 81 16 155/95 97 07/10/16 17:44 80 16 119/73 96 07/10/16 17:28 71 16 125/74 94 07/10/16 17:14 72 16 129/76 93 07/10/16 17:00 98.6 75 16 137/92 95 07/10/16 12:49 98.0 86 18 149/96 95 07/10/16 07/10/16 07/11/16 15:00 23:00 07:00 Output Total 200 ml 500 ml Balance -200 ml -500 ml Drainage Total 200 ml 500 ml Result Diagram: 07/10/16 0636 07/10/16 0636 Imaging Last Impressions Chest X-Ray 07/09/16 1733 Signed Impressions: Service Date/Time: Saturday, July 09, 2016 17:48 - CONCLUSION: Mild compensated cardiomegaly with minimal bibasilar clinical changes. Houston Noriega MD FACR Objective Remarks GENERAL: This is a well-nourished, well-developed patient, in no apparent distress. CARDIOVASCULAR: Regular rate and rhythm without murmurs, gallops, or rubs. RESPIRATORY: Clear to auscultation. Breath sounds equal bilaterally. No wheezes , rales, or rhonchi. GASTROINTESTINAL: Abdomen soft, non-tender, nondistended. Normal active bowel sounds MUSCULOSKELETAL: Extremities without clubbing, cyanosis, or edema. NEURO: Alert & Oriented x4 to person, place, time, situation. Moves all ext x4 A/P Problem List: (1) Calculus of proximal left ureter Status: Chronic Plan: - comgmt with Urology, Dr. Allen & Interventional Radiology - pt with 1.7 left lower pole stone with and indwelling ureteral stent & left sided flank pain - Pt had left percutaneous nephrostomy tube placement with by IR, Dr. Gorman () - Case d/w Dr. Gorman (07/11/16) - Pt to undergo removal of JJ stent & internalization of left PCNT with nephroureteral stent, either later today (07/11) or 07/12 - Pt will then f/u with Dr. Alejandro ac for left percutaneous nephrolithotomy (2) Intractable pain Status: Acute Plan: - Pt admitted with intractable flank pain and vomiting. The pain has been worsening for the last few days. - Pt has hx of nephrolithiasis and previously underwent cystoscopy with urinary stent placement in the left kidney and ureter on 11/20/[address] Stevens - Pt still has that stent in place. - CT Abd/pelvis (07/08/15) with noted double J stent on the left with stone in the lower pole of the kidney unchanged from the comparison study - Urine culture from 07/08 is pending. - Pt was given a dose of Ceftriaxone in the ER - see above (3) Renal colic on left side Status: Acute Plan: - See above. (4) Nephrolithiasis Status: Acute Plan: - See above. Assessment and Plan Patient examined. Assessment and plan formulated with Anna Durant PA-C. I agree with the above. Chris Delacruz DO Jul 11, 2016 12:21
[2016-07-11 13:00] VITALS: BP 136/67; PULSE 71; RESP 18; TEMP 98.3; O2SAT 97
--- NOTE | 2016-07-11 15:56 | RADRPT ---
EXAM DATE/TIME: 07/10/2016 16:07 [place] COMPARISON: No previous studies available for comparison. INDICATIONS : Patient with a history of kidney stones. MEDICAL HISTORY : Nephrolithiasis ADD SURGICAL HISTORY : Cystoscopy with left ureteral stent placement Shock-wave lithotripsy Cholecystectomy ENCOUNTER: Initial ACUITY: 2 days PAIN SCORE: 6/10 LOCATION: Left flank FLUORO TIME: 3.5 minutes SEDATION TIME: 30 minutes CONTRAST: 20 cc Omnipaque (iohexol) 350 MEDICATION(S): 1.) 3 mg midazolam (Versed) IV 2.) 150 mcg fentanyl (Sublimaze) IV 3.) 500 mg levofloxacin (Levaquin) IV Intra-procedural antibiotics were given as prescribed above. DEVICE(S): 1.) 8 [place]anian nephrostomy catheter PROCEDURE : 1. Ultrasound-guided puncture of the kidney. 2. Antegrade percutaneous pyelogram. 3. Percutaneous nephrostomy placement. 4. Conscious sedation with continuous EKG and oximetry monitoring. The risks, benefits and alternatives to the procedure were explained and verbal and written consent w as obtained. The site was prepped in sterile fashion. Full sterile technique was used, including ca p, mask, sterile gloves and gown and a large sterile sheet. Hand hygiene and 2% chlorhexidine and/or betadine/alcohol prep was utilized per protocol for cutaneous antisepsis. The skin and subcutaneous tissues were infiltrated with local anesthetic solution. The left kidney was evaluated fluoroscopically demonstrating the double-J stent. This was used as a g uide to the collecting system. Skin overlying the proximal loop of the stent was anesthetized with ap proximately 3 cc 1% lidocaine. A 25 gauge spinal needle was advanced down to the stent. The inner sty lette was removed with immediate flow of urine. CO2 was injected to delineate the posterior calyceal system. The calyx containing the isolated calculus was selected and the area anesthetized with an additional 5 cc 1% Xylocaine. Dermatotomy was made with an 11 blade scalpel. 18 gauge Infante blunt needle was a dvanced down to and into the calyx containing the stone. A note 35 Glidewire was advanced through th e outer cannula and into the collecting system. This pushed the stone out of the upper midpole calyx into the upper pole calyx. As the system was mildly dilated, patient was placed to 8 Tanzanian nephrosto my tube drainage. Catheter was secured to the skin surface with 2-0 silk suture and a gauze dressing Conscious sedation was performed with the prescribed dosages and duration as above. The patient tole rated the procedure well and there were no complications. EKG and oximetry remained stable throughou t the procedure. The patient was sent to post anesthesia recovery in stable condition. CONCLUSION: 1. Uncomplicated nephrostomy tube placement as above. 2. A mid-upper pole calyx was selected as it contained in the isolated renal calculus. 3. As there was some pelvocaliectasis/hydronephrosis of the left renal collecting system on CT, patie nt will be drained for 24-48 hrs before attempted double-J stent removal and nephroureteral tube plac ement. Sean Gorman MD on July 11, 2016 at 15:43 Board Certified Radiologist. This report was verified electronically.
[2016-07-11 21:09] VITALS: BP 113/66; PULSE 81; RESP 21; TEMP 98.7; O2SAT 97
[2016-07-12] VITALS (10 sets, daily range): BP systolic 121–160; BP diastolic 62–82; PULSE 64–88; RESP 16–18; TEMP 97.4–98.8; O2SAT 92–98
[2016-07-12] MEDS: KETOROLAC TROMETHAMINE 30 MG/ML (IVP) VIAL IV PUSH SCH ×4 (02:01→16:58)
[2016-07-12] MEDS: 1/2 NS + KCL 20 MEQ INJ 1,000 ML IV SCH ×3 (02:02→09:27)
[2016-07-12] MEDS: SODIUM CHLORIDE 0.9% FLUSH 5 ML FLUSH FLUSH SCH ×2 (09:00→22:39)
[2016-07-12] MEDS: HYDROmorphone HCL PF 1 MG/ML VIAL IV PUSH PRN ×3 (09:27→22:40)
[2016-07-12] MEDS: ONDANSETRON HCL 4 MG/2 ML VIAL IVP PRN ×3 (09:27→22:39)
[2016-07-12] MEDS ORDERED: LEVOFLOXACIN 500 MG PREMIX INJ 100 ML IV ONE (11:02)
[2016-07-12] MEDS ORDERED: MIDAZOLAM HCL 5 MG/5 ML VIAL ONE ×2 (11:02→12:19)
[2016-07-12] MEDS ORDERED: fentaNYL CITRATE 250 MCG/5 ML AMP ONE (11:03)
[2016-07-12] MEDS ORDERED: MIDAZOLAM HCL 2 MG/2 ML VIAL ONE ×2 (11:51→11:54)
[2016-07-12] MEDS ORDERED: HYDROmorphone HCL PF 2 MG/ML VIAL ONE (12:18)
--- NOTE | 2016-07-12 12:54 | PD.RAD ---
Post Procedure Progress Note Pre Procedure Diagnosis: (1) Intractable pain (2) Calculus of proximal left ureter (3) Obstructed ureteral stent Post Procedure Diagnosis: (1) Intractable pain (2) Calculus of proximal left ureter (3) Obstructed ureteral stent Procedure Date: Jul 12, 2016 Supervising Radiologist: Sean Gorman Proceduralist/Assist: Samira Muñoz, RT(R), Samira Richey, RT(R)(), Miguel Mitchell RT(R)() Anesthesia: Local, Analgesia, Conscious Sedation Plan of Activity Patient to Unit: ROPU Patient Condition: Good See PACS Report for procedural detail/treatment Drainage Procedure Procedure 1 Imaging Guidance: Fluoroscopy Procedure Type: Nephrostomy, Ureteral Stent Procedure: Exchange (Had 8Fr PCN) Fluid Description: Bloody, Yellow Procedure 2 Imaging Guidance: Fluoroscopy Procedure Type: Ureteral Stent Procedure: Removal (Placed by urology over a year ago. Heavily calcified and incorporated into tissues of collecting system proximally and distally. Removed in two piece (split poximally and distally)) Sean Gorman MD Jul 12, 2016 12:53
--- NOTE | 2016-07-12 14:11 | HHI.PR ---
Subjective Remarks Pt seen and examined s/p left internalization with nephroureteral stent and removal of JJ stent. Some pain noted. Hematuria from Left PNCT. Objective Vital Signs Vital Signs Date Time Temp Pulse Resp B/P Pulse Ox O2 Delivery O2 Flow Rate FiO2 07/12/16 14:06 68 18 127/76 96 07/12/16 08:00 98.0 76 16 140/62 97 07/12/16 07:41 16 07/12/16 05:35 98.0 64 18 147/82 96 07/12/16 01:39 98.0 88 18 140/77 97 07/11/16 21:09 98.7 81 21 113/66 97 07/11/16 21:00 18 I/O 07/11/16 07/11/16 07/11/16 07/12/16 07/12/16 07/12/16 07:00 15:00 23:00 07:00 15:00 23:00 Intake Total 1620 ml Output Total 500 ml 450 ml 1470 ml 250 ml Balance -500 ml -450 ml 150 ml -250 ml Intake Oral 620 ml IV Total 1000 ml Output Urine Total 450 ml 850 ml Drainage Total 500 ml 620 ml 250 ml Result Diagram: 07/10/1636 07/10/16635 Objective Remarks Abd:soft,nt,nd Left PCNT: urine clear 07/12 Abd:soft,nt,nd Left PCNT: hematuria Assessment and Plan Assessment and Plan Stable s/p left PCNT placement. Pt to undergo removal of JJ stent and internalize left PCNT with nephroureteral stent. PNCL to follow as outpatient. She will need to f/u in 1-2 weeks to schedule surgery. 07/12 Stable s/p internalization of left PNCT with nephroureteral stent and removal of encrusted left JJ stent Pain management with IV fluid hydration Possible D/C home tomorrow if pain controlled and urine is clearing Ross Allen DO Jul 12, 2016 14:11
--- NOTE | 2016-07-12 17:37 | HHI.PR ---
Subjective Remarks Pt having quite a bit of pain this evening. She underwent s/p exchange of left nephrostomy with nephroureteral stent and removal of JJ stent with IR today Procedure was reportedly quite difficult and expected that the pt would have significant pain. Afebrile Pt with a lot of nausea this evening and complains of a headache Objective Vitals Vital Signs Date Time Temp Pulse Resp B/P Pulse Ox O2 Delivery O2 Flow Rate FiO2 07/12/16 15:31 97.4 78 18 160/77 94 07/12/16 14:50 79 18 125/80 92 07/12/16 14:20 79 16 126/67 97 07/12/16 14:06 68 18 127/76 96 07/12/16 13:20 73 18 121/81 96 07/12/16 13:05 98.4 78 16 135/77 93 07/12/16 08:00 98.0 76 16 140/62 97 07/12/16 07:41 16 07/12/16 05:35 98.0 64 18 147/82 96 07/12/16 01:39 98.0 88 18 140/77 97 07/11/16 21:09 98.7 81 21 113/66 97 07/11/16 21:00 18 07/11/16 07/11/16 07/12/16 15:00 23:00 07:00 Intake Total 1620 ml Output Total 450 ml 1470 ml Balance -450 ml 150 ml Intake Oral 620 ml IV Total 1000 ml Output Urine Total 450 ml 850 ml Drainage Total 620 ml Result Diagram: 07/10/16 0636 07/10/16 0636 Imaging Last Impressions Nephrostomy 07/10/16 0000 Signed Impressions: Service Date/Time: Sunday, July 10, 2016 16:07 - CONCLUSION: 1. Uncomplicated nephrostomy tube placement as above. 2. A mid-upper pole calyx was selected as it contained in the isolated renal calculus. 3. As there was some pelvocaliectasis/hydronephrosis of the left renal collecting system on CT, patient will be drained for 24-48 hrs before attempted double-J stent removal and nephroureteral tube placement. Sean Gorman MD Chest X-Ray 07/09/16 6998 Signed Impressions: Service Date/Time: Saturday, July 09, 2016 17:48 - CONCLUSION: Mild compensated cardiomegaly with minimal bibasilar clinical changes. Houston Noriega MD FACR Objective Remarks General: Appears to be in pain, AAOx3 Chest: CTA Cardiac: Regular Abd: +BS, soft diffusely tender, Left nephrostomy tube in place with hematuria noted Ext: No edema A/P Problem List: (1) Calculus of proximal left ureter Status: Chronic Plan: - comgmt with Urology, Dr. Allen & Interventional Radiology - pt with 1.7 left lower pole stone with and indwelling ureteral stent & left sided flank pain - Pt had left percutaneous nephrostomy tube placement with by IR, Dr. Gorman () - Pt underwent s/p exchange of left nephrostomy with nephroureteral stent and removal of encrusted left JJ stent - Pt will then f/u with Dr. Allen outpt for left percutaneous nephrolithotomy - Pt with percutaneous nephrostomy tube in place with hematuria noted. - Cont. IVF - Pain control PRN - Zofran PRN for nausea (2) Intractable pain Status: Acute Plan: - Pt admitted with intractable flank pain and vomiting. - Pt has hx of nephrolithiasis and previously underwent cystoscopy with urinary stent placement in the left kidney and ureter on 11/20/[address] Stevens - Pt still has that stent in place. - CT Abd/pelvis (07/08/15) with noted double J stent on the left with stone in the lower pole of the kidney unchanged from the comparison study - Urine culture from 07/08 with probable contaminants. - see above (3) Renal colic on left side Status: Acute Plan: - See above. (4) Nephrolithiasis Status: Acute Plan: - See above. Assessment and Plan Patient examined. Assessment and plan formulated with Anna Durant PA-C. I agree with the above. Anna Durant Jul 12, 2016 17:37 Chris Delacruz DO Jul 20, 2016 19:34
[2016-07-13] VITALS: BP 133/78; PULSE 80; RESP 19; TEMP 98; O2SAT 98
[2016-07-13] MEDS: KETOROLAC TROMETHAMINE 30 MG/ML (IVP) VIAL IV PUSH SCH ×3 (01:14→13:37)
[2016-07-13] MEDS: 1/2 NS + KCL 20 MEQ INJ 1,000 ML IV SCH ×3 (01:14→08:53)
[2016-07-13] MEDS: ONDANSETRON HCL 4 MG/2 ML VIAL IVP PRN ×2 (03:43→08:54)
[2016-07-13] MEDS: HYDROmorphone HCL PF 1 MG/ML VIAL IV PUSH PRN ×2 (03:43→10:28)
[2016-07-13 04:00] VITALS: BP 130/68; PULSE 68; RESP 21; TEMP 98; O2SAT 98
[2016-07-13 07:45] VITALS: BP 128/73; PULSE 90; RESP 18; TEMP 99; O2SAT 94
[2016-07-13] MEDS: SODIUM CHLORIDE 0.9% FLUSH 5 ML FLUSH FLUSH SCH (08:53)
[2016-07-13 11:00] VITALS: BP 140/78; PULSE 94; RESP 18; TEMP 99; O2SAT 95
--- NOTE | 2016-07-13 11:22 | HHI.PR ---
Subjective Remarks Pt seen and examined. Desires to go home. Some pain but controlled. Objective Vital Signs Vital Signs Date Time Temp Pulse Resp B/P Pulse Ox O2 Delivery O2 Flow Rate FiO2 07/13/16 07:45 99.0 90 18 128/73 94 07/13/16 04:24 18 07/13/16 04:00 98.0 68 21 130/68 98 07/13/16 02:19 18 07/13/16 00:00 98.0 80 19 133/78 98 07/12/16 20:10 18 07/12/16 20:09 98.8 77 18 130/79 98 07/12/16 15:31 97.4 78 18 160/77 94 07/12/16 14:50 79 18 125/80 92 07/12/16 14:20 79 16 126/67 97 07/12/16 14:06 68 18 127/76 96 07/12/16 13:20 73 18 121/81 96 07/12/16 13:05 98.4 78 16 135/77 93 I/O 07/12/16 07/12/16 07/12/16 07/13/16 07/13/16 07/13/16 07:00 15:00 23:00 07:00 15:00 23:00 Intake Total 850 ml Output Total 250 ml 1400 ml 1050 ml Balance -250 ml -550 ml -1050 ml IV Total 850 ml Output Urine Total 800 ml Drainage Total 250 ml 600 ml 1050 ml # Bowel Movements 0 Result Diagram: 07/10/1636 07/10/16635 Objective Remarks Abd:soft,nt,nd Left PCNT: urine clear 07/12 Abd:soft,nt,nd Left PCNT: hematuria 07/13 Abd:soft,nt,nd Left PCNT: urine clearing Assessment and Plan Assessment and Plan Stable s/p left PCNT placement. Pt to undergo removal of JJ stent and internalize left PCNT with nephroureteral stent. PNCL to follow as outpatient. She will need to f/u in 1-2 weeks to schedule surgery. 07/12 Stable s/p internalization of left PNCT with nephroureteral stent and removal of encrusted left JJ stent Pain management with IV fluid hydration Possible D/C home tomorrow if pain controlled and urine is clearing 07/13 Stable s/p Left PCNT with internalization Stable for discharge To f/u in office next week to schedule left PCNL Ross Allen DO Jul 13, 2016 11:22
[2016-07-13] MEDS ORDERED: HYDR-3288 PO (13:40)
[2016-07-13] MEDS ORDERED: ZOFR4TAB PO (13:47)
--- NOTE | 2016-07-13 13:47 | HHI.DS ---
Discharge Summary Admission Date Jul 09, 2016 at 17:42 Discharge Date: Jul 13, 2016 Admitting Diagnosis intractable pain, renal colic (1) Calculus of proximal left ureter Diagnosis: Principal (2) Intractable pain Diagnosis: Principal (3) Renal colic on left side Diagnosis: Principal (4) Nephrolithiasis Diagnosis: [facility] Consult[facility] Dr. Ross Allen, Urology Dr. Sean Gorman, Interventional Radiology Procedures left percutaneous nephrostomy tube placement with by IR, Dr. Gorman (07/10/16) exchange of left nephrostomy with nephroureteral stent and removal of encrusted left JJ stent (07/12/16) Brief History Ms. Allen is a pleasant 41 y/o WF with nephrolithiasis who presented to the ED at [facility] on 07/08/16 and 07/09/16 with complaints of left flank pain and abdominal pain that has been going on intermittently for over a year. Pt had previously had a cystoscopy and left ureteral stent placed in 10/2014. In the ED yesterday she had a CT abd/pelvis which noted a 1.7 cm kidney stone in the lower pole of the left kidney with no obstruction and the double J stent in place. UA was abnormal. The PA in the ED that saw her on 07/[address] Escobar per his note was instructed to followup in the office with Dr. Escobar today. She was given a prescription for Cipro at discharge. She returned to the ER today with worsening pain and vomiting today. She was unable to get the antibiotic prescription filled and she feels that she may have had a reaction to the IV dose that was given ED. Patient continues to have dysuria but denies any vaginal discharge. Denies any fevers or other new symptoms. Pt was given a dose of ceftriaxone in the ER. Her WBC count at admission was 9.8. Urine culture from 07/08 is pending. CBC/BMP: 07/10/16 0636 07/10/16 0636 Imaging Last Impressions Nephrostomy 07/10/16 0000 Signed Impressions: Service Date/Time: Sunday, July 10, 2016 16:07 - CONCLUSION: 1. Uncomplicated nephrostomy tube placement as above. 2. A mid-upper pole calyx was selected as it contained in the isolated renal calculus. 3. As there was some pelvocaliectasis/hydronephrosis of the left renal collecting system on CT, patient will be drained for 24-48 hrs before attempted double-J stent removal and nephroureteral tube placement. Sean Gorman MD Chest X-Ray 07/09/16 5331 Signed Impressions: Service Date/Time: Saturday, July 09, 2016 17:48 - CONCLUSION: Mild compensated cardiomegaly with minimal bibasilar clinical changes. Houston Noriega MD FACR PE at Discharge General: Appears to be in pain, AAOx3 Chest: CTA Cardiac: Regular Abd: +BS, soft diffusely tender, Left nephrostomy tube in place with hematuria noted Ext: No edema Hospital Course (1) Calculus of proximal left ureter Status: Chronic Plan: - comgmt with Urology, Dr. Allen & Interventional Radiology - pt with 1.7 left lower pole stone with and indwelling ureteral stent & left sided flank pain - Pt had left percutaneous nephrostomy tube placement with by IR, Dr. Gorman () - Pt underwent s/p exchange of left nephrostomy with nephroureteral stent and removal of encrusted left JJ stent (07/12/16) - Pt will then f/u with Dr. Allen outpt for left percutaneous nephrolithotomy - norco 7.5 q4 hours prn pain (2) Intractable pain Status: Acute Plan: - Pt admitted with intractable flank pain and vomiting. - Pt has hx of nephrolithiasis and previously underwent cystoscopy with urinary stent placement in the left kidney and ureter on 11/20/[address] Stevens - Pt still has that stent in place. - CT Abd/pelvis (07/08/15) with noted double J stent on the left with stone in the lower pole of the kidney unchanged from the comparison study - Urine culture from 07/08 with probable contaminants. - see above (3) Renal colic on left side Status: Acute Plan: - See above. (4) Nephrolithiasis Status: Acute Plan: - See above. Pt Condition on Discharge: Stable Discharge Disposition: Discharge Home Discharge Instructions DIET: Follow Instructions for: As Tolerated, No Restrictions Activities you can perform: Regular-No Restrictions Follow up Referrals: Urology - 3-5 Days with Ross Allen DO New Medications: Hydrocodone-Acetaminophen (Lynd) 7.5-325 mg Tab 1 TAB PO Q4H PRN PAIN #20 Ref 0 TAB Ondansetron (Zofran) 4 Mg Tab 4 MG PO Q6HR PRN NAUSEA OR VOMITING #15 Ref 0 TAB Discontinued Medications: Amphetamine-Dextroamphetamine ER 24 HR (Adderall Xr 24 HR) 20 Mg Cap 20 MG PO DAILY Once daily in the morning. Hyperactivity Control #30 Ref 0 CAP Additional Information Patient examined. Assessment and plan formulated with Anna Durant PA-C. I agree with the above. Chris Delacruz DO Jul 13, 2016 13:47
--- NOTE | 2016-07-14 17:24 | RADRPT ---
EXAM DATE/TIME: 07/12/2016 10:58 [facility] COMPARISON: No previous studies available for comparison. INDICATIONS : Patient presents with a history of kidney stones in need of stent removal with internal stent placeme nt. MEDICAL HISTORY : Nephrolithiasis ADD SURGICAL HISTORY : Cystoscopy with left ureteral stent placement Lithotripsy Cholecystectomy ENCOUNTER: Subsequent ACUITY: 4 - 6 days PAIN SCORE: 0/10 LOCATION: N/A FLUORO TIME: 28.9 minutes SEDATION TIME: 90 minutes CONTRAST: 45 cc Omnipaque (iohexol) 350 MEDICATION(S): 1.) 8 mg midazolam (Versed) IV 2.) 2 mg hydromorphone (Dilaudid) IV 3.) 320 mcg fentanyl (Sublimaze) IV DEVICE(S): 1.) 8 Nigerien 28CM nephroureteral stent PROCEDURE : 1. Ultrasound-guided puncture of the kidney. 2. Antegrade percutaneous pyelogram. 3. Percutaneous nephrostomy placement. 4. Conscious sedation with continuous EKG and oximetry monitoring. The risks, benefits and alternatives to the procedure were explained and verbal and written consent w as obtained. The site was prepped in sterile fashion. Full sterile technique was used, including ca p, mask, sterile gloves and gown and a large sterile sheet. Hand hygiene and 2% chlorhexidine and/or betadine/alcohol prep was utilized per protocol for cutaneous antisepsis. The skin and subcutaneous tissues were infiltrated with local anesthetic solution. Patient has a double-J stent was placed by urology over a year ago, according to the patient. A nephr ostomy tube was placed in the upper pole collecting system of the same kidney approximately 48 hours ago. The ureteral stent was removed percutaneously with a gooseneck snare (please see that report for details). A 4 mm balloon was used to angioplasty the ureter to facilitate placement of the percutane ous nephroureteral tube. Conscious sedation was performed with the prescribed dosages and duration as above. The patient tole rated the procedure well and there were no complications. EKG and oximetry remained stable throughou t the procedure. The patient was sent to post anesthesia recovery in stable condition. CONCLUSION: Uncomplicated nephrostomy tube placement as above. Sean Gorman MD on July 14, 2016 at 15:07 Board Certified Radiologist. This report was verified electronically.
--- NOTE | 2016-07-14 18:01 | RADRPT ---
EXAM DATE/TIME: 07/12/2016 00:00 [facility] COMPARISON: No previous studies available for comparison. INDICATIONS : Patient presents with a history of kidney stones in need of stent removal with internal stent placeme nt. MEDICAL HISTORY : Nephrolithiasis ADD SURGICAL HISTORY : Cystoscopy with left ureteral stent placement Lithotripsy Cholecystectomy ENCOUNTER: Subsequent ACUITY: 4 - 6 days PAIN SCORE: 0/10 FLUORO TIME: 28.9 minutes SEDATION TIME: 90 minutes CONTRAST: 45 cc Omnipaque (iohexol) 350 MEDICATION(S): 1.) 8 mg midazolam (Versed) IV 2.) 320 mcg fentanyl (Sublimaze) IV 3.) 2 mg hydromorphone (Dilaudid) IV PROCEDURE : 1. Antegrade percutaneous pyelogram. 2. Percutaneous ureteral stent placement. 3. Conscious sedation with continuous EKG and oximetry monitoring. The risks, benefits and alternatives to the procedure were explained and verbal and written consent w as obtained. The site was prepped in sterile fashion. Full sterile technique was used, including ca p, mask, sterile gloves and gown and a large sterile sheet. Hand hygiene and 2% chlorhexidine and/or betadine/alcohol prep was utilized per protocol for cutaneous antisepsis. The skin and subcutaneous tissues were infiltrated with local anesthetic solution. Through the patient's existing nephrostomy placed a few days earlier, a stiff glidewire was advanced down into the urinary bladder. Over the wire, an 8 [place]ian 25 cm side-port sheath was advanced into t he collecting system. Because of the long infundibulum in the upper pole system, the catheter and wi re were advanced down into the urinary bladder over which the 30 mm gooseneck snare was placed. This was used to snare the distal end of the stent. However, I could never grab the very tip of the sten t and, therefore, the catheter was grabbed just above the distal [place] loop. I attempted to pull the catheter back into the 8 Gambian sheath but it would not completely dislodge. Therefore, the sheath w as removed and replaced with an 11 [place]ian side-port sheath. Again, I was able to draw the catheter f olded over partway into the sheath but the catheter seemed to be adherent both proximally and distall y. Therefore, the mid portion of the catheter was pulled up through the sheath and excised. I then attempted to access each of the excised lumens but there were extensive concretions and calcification s which prevented advancing a wire through the catheters. Therefore, the sheath was advanced back ov er each of the pieces of the stent independently. The stents were slowly pulled back into the sheath until they gave way. Each half was removed and blocked and was extensively encrusted with calcium w steve explains why it was so difficult to remove. After removal, a nephroureteral tube was placed over the same wire following balloon angioplasty of t he ureter. Please see the report on the nephroureteral tube placement for further description. Conscious sedation was performed with the prescribed dosages and duration as above. The patient tole rated the procedure well and there were no complications. EKG and oximetry remained stable throughou t the procedure. The patient was sent to post anesthesia recovery in stable condition. CONCLUSION: 1. Very difficult removal of exiting double J stent. The tube was extensively encrusted both internal control analyst ally and externally with calcific concretions probably due to the extended longevity of the device. 2. Each portion of the stent proximally and distally was removed independently en bloc and replaced with a nephroureteral as detailed above. Sean Gorman MD on July 14, 2016 at 17:24 Board Certified Radiologist. This report was verified electronically.
== END 2016-07-13 15:35 | disposition home or self-care (01) ==
LOC: NEPC 14:48 → NEDA 17:42 → NEPGCP 20:20
PROVIDERS: ADMIT Hospitalist; ATTEND Hospitalist
DX: N20.0 Calculus of kidney (principal); R11.10 Vomiting, unspecified; F90.9 Attention-deficit hyperactivity disorder, unspecified type; R30.0 Dysuria; Z87.442 Personal history of urinary calculi; I51.7 Cardiomegaly; R31.9 Hematuria, unspecified
CPT/HCPCS: 50384; 50432; 50434; 71010; 74485; 80048; 83735; 84702; 85025; 85610; 85730; 93005; 96365; 96375; 99152; 99153; 99285; C1725; C1729; C1769; C1773; C1877; C1887; C1894; G0378; J0696; J1170; J1885; J1956; J2250; J2405; J3010; Q9967